=== PATIENT | female | born 1980 | race American Indian/Alaskan Native ===

== ENCOUNTER 2019-07-28 08:21 | Outpatient (CLI) | payer BC ==
--- NOTE | 2019-07-28 12:34 | Mammography Report ---
BILATERAL DIGITAL DIAGNOSTIC MAMMOGRAM WITH CAD -- 07/28/2019 LEFT LIMITED BREAST ULTRASOUND INDICATION: BREAST LUMP LEFT TECHNIQUE: Digital bilateral mammographic imaging was performed. Spot compression views were obtaine d. This examination was interpreted with the benefit of Computer-Aided Detection (CAD) analysis. COMPARISON: 12/11/2015 FINDINGS: Breast Density: The breasts are heterogeneously dense, which may obscure small masses. MAMMOGRAPHIC FINDINGS: There is no evidence of dominant mass, suspicious calcifications or architectu ral distortion in either breast. ULTRASOUND FINDINGS: Targeted ultrasound evaluation was performed of the area of interest. Ultrasou nd of the left breast demonstrated a benign cyst at 11:00 2 cm from the nipple measuring 5 x 2 x 3 mm . It appears to correlate with the palpable lump. No solid mass or shadowing. IMPRESSION: A benign 5 mm cyst of the left breast. Negative right breast. Follow up recommendation: Routine yearly BI-RADS Category 2: Benign. A "normal" or negative report should not discourage follow up or biopsy of a clinically significant f inding. A written summary of these findings will be mailed to the patient. The patient will be entered into a mammography reporting system which will generate a reminder letter for the patient's next appointmen t at the appropriate interval. According to the [employer], yearly mammograms are recommended starting at age 40 and continuing as long as a woman is in good health. Breast MRI is recommended for women with an merissa roximately 20-25% or greater lifetime risk of breast cancer, including women with a strong family his tory of breast or ovarian cancer and women who have been treated for Hodgkin's disease. Signer Name: Abdullahi Espinal MD Signed: 07/28/2019 12:30 PM Workstation Name: [id number]
== END 2019-07-28 08:22 | disposition home or self-care (01) ==
LOC: SPVWC 08:21
PROVIDERS: ATTEND Internal Medicine
DX: N63.0 Unspecified lump in unspecified breast (principal); D24.2 Benign neoplasm of left breast
CPT/HCPCS: 77066

== ENCOUNTER 2021-11-26 08:36 | Outpatient (CLI) | payer BC ==
--- NOTE | 2021-11-26 11:02 | Ultrasound Report ---
BILATERAL DIGITAL DIAGNOSTIC MAMMOGRAM WITH CAD CONVENTIONAL, 11/26/2021 LEFT LIMITED BREAST ULTRASOUND CLINICAL INFORMATION / INDICATION: LEFT BREAST LUMP TECHNIQUE: Digital bilateral mammographic imaging was performed. Spot compression views were obtained . Limited ultrasound was performed. This examination was interpreted with the benefit of Computer-Aid ed Detection (CAD) analysis. COMPARISON: 12/11/15 and 07/28/19. FINDINGS: Breast Density: The breasts are heterogeneously dense, which may obscure small masses. MAMMOGRAPHIC FINDINGS: No dominant mass, suspicious calcifications, or architectural distortion in ei ther breast. Asymmetric breast tissue/benign-appearing nodularity in the left upper outer quadrant is similar to the most recent study. This area is less prominent on spot compression views. ULTRASOUND FINDINGS: Targeted ultrasound evaluation was performed of the area of interest. There is a 1 cm ovoid simple cyst at the 2:00 position 5 cm from the nipple at the site of the palpable abnor mality. No suspicious abnormality is seen. IMPRESSION: 1. 1 cm simple cyst in the left upper outer quadrant at the site of the patient's palpable abnormalit y. 2. No mammographic or sonographic evidence of malignancy. Follow up recommendation: Routine yearly BI-RADS Category 2: BENIGN. A "normal" or negative report should not discourage follow up or biopsy of a clinically significant f inding. A written summary of these findings will be mailed to the patient. The patient will be entered into a mammography reporting system which will generate a reminder letter for the patient's next appointmen t at the appropriate interval. According to the [employer], yearly mammograms are recommended starting at age 40 and continuing as long as a 1 cm ovoid simple cyst at the 2:00 position 5 cm from the nipple at the s ite of the palpable abnormality. No other abnormality is seen. Woman is in good health. Breast MRI i s recommended for women with an approximately 20-25% or greater lifetime risk of breast cancer, inclu ding women with a strong family history of breast or ovarian cancer and women who have been treated f or Hodgkin's disease. Signer Name: Eleazar Arreguin MD Signed: 11/26/2021 10:58 AM Workstation Name: [id number]
== END 2021-11-26 08:37 | disposition home or self-care (01) ==
LOC: SPVWC 08:36 → MAMMO 08:37
PROVIDERS: ATTEND Internal Medicine
DX: N63.21 Unspecified lump in the left breast, upper outer quadrant (principal)
CPT/HCPCS: 77066